=== PATIENT | male | born 1950 | race Caucasian/White ===

== ENCOUNTER 2017-10-05 18:13 | Observation (INO) | payer OTHER ==
[~2017-10-05] VITALS: Ht 180.3 cm; Wt 104.5 kg
[2017-10-05 18:14] VITALS: BP 142/67; PULSE 85; RESP 18; TEMP 98.6; O2SAT 100
[2017-10-05] MEDS ORDERED: SODIUM CHLORIDE 0.9% FLUSH 10 ML FLUSH IVF PRN (18:30)
[2017-10-05] MEDS ORDERED: ASPIRIN 325 MG TAB PO ONE (18:30)
[2017-10-05] MEDS ORDERED: LEVO.05 PO (18:31)
[2017-10-05 18:35] VITALS: BP_SYST 125; BP_SYST 162; BP_DIAS 70; BP_DIAS 72; PULSE 85; RESP 16; O2SAT 98; O2SAT 99
--- NOTE | 2017-10-05 18:50 | PD ---
HPI Chief Complaint: Chest Pain Time Seen by Provider: 18:31 Travel History International Travel<30 days: No Contact w/Intl Traveler<30days: No Traveled to known affect area: No History of Present Illness HPI 67-year-old male with PMH of hypothyroidism, gastric bypass, recently diagnose basal cell carcinoma presents to the ED for evaluation of approximate 1 hour history of 5/10 substernal chest pain. Onset at rest. Patient describes the pain as "a pushing out or stabbing sensation." Accompanied by shortness of breath. Pain lasted approximately 5 minutes before resolving spontaneously. Currently pain-free. Patient denies associated diaphoresis, palpitations, nausea or vomiting. The patient states that he had an episode of small amount of nonbloody, nonbloody emesis today. He states this is not unusual if he eats too much. Patient is a non-smoker, occasional drinker. He endorses familial history of [place] in his mother and father. PFSH Past Medical History Diminished Hearing: No Medical other: Yes Thyroid Disease: Yes Tetanus Vaccination: > 5 Years Influenza Vaccination: Yes Past Surgical History Abdominal Surgery: Yes (gastric by pass) Genitourinary Surgery: Yes (prostate sx ) Social History Alcohol Use: No Tobacco Use: No Substance Use: No Allergies-Medications (Allergen,Severity, Reaction): Coded Allergies: No Known Allergies (Unverified , 10/05/17) Reported Meds & Prescriptions Reported Meds & Active Scripts Active Reported Synthroid (Levothyroxine Sodium) 50 Mcg Tab 50 Mcg PO DAILY Review of Systems Except as stated in HPI: all other systems reviewed are Neg Physical Exam Narrative GENERAL: Well-nourished, well-developed, pleasant male in no acute distress. SKIN: Focused skin assessment warm/dry. HEAD: Normocephalic. EYES: No scleral icterus. No injection or drainage. NECK: Supple, trachea midline. No JVD or lymphadenopathy. CARDIOVASCULAR: Regular rate and rhythm without murmurs, gallops, or rubs. CHEST: Nontender throughout without deformity or crepitus. No retractions. RESPIRATORY: Breath sounds clear and equal bilaterally. No accessory muscle use. GASTROINTESTINAL: Abdomen soft, non-tender, nondistended. Active bowel sounds. MUSCULOSKELETAL: No cyanosis, or edema. BACK: Nontender without obvious deformity. No CVA tenderness. Data Data Last Documented VS Vital Signs Date Time Temp Pulse Resp B/P (MAP) Pulse Ox O2 Delivery O2 Flow Rate FiO2 10/05/17 19:40 68 16 122/76 (91) 97 Room Air 10/05/17 18:14 98.6 Orders Orders Electrocardiogram (10/05/17 18:30) Ckmb (Isoenzyme) Profile (10/05/17 18:30) Complete Blood Count With Diff (10/05/17 18:30) Comprehensive Metabolic Panel (10/05/17 18:30) Magnesium (Mg) (10/05/17 18:30) Prothrombin Time / Inr (Pt) (10/05/17 18:30) Act Partial Throm Time (Ptt) (10/05/17 18:30) Troponin I (10/05/17 18:30) Chest, Single Ap (10/05/17 18:30) Ecg Monitoring (10/05/17 18:30) Bilateral Bp Monitoring (10/05/17 18:30) Iv Access Insert/Monitor (10/05/17 18:30) Oximetry (10/05/17 18:30) Oxygen Administration (10/05/17 18:30) Aspirin (Aspirin) (10/05/17 18:30) Sodium Chloride 0.9% Flush (Ns Flush) (10/05/17 18:30) Abdomen, Upright Only (10/05/17 18:32) Lipase (10/05/17 18:40) Sodium Chlorid 0.9% 500 Ml Inj (Ns 500 M (10/05/17 19:30) Place In Observation (10/05/17 19:45) Activity Bed Rest With Brp (10/05/17 19:45) Vital Signs (Adult) Q4H (10/05/17 19:45) Cardiac Rhythm .As Directed (10/05/17:45) Notify Dr: Other .PRN (10/05/17:45) Notify Dr. Parameters (10/05/17:45) Ckmb (Isoenzyme) Profile (10/05/17 19:45) Ckmb (Isoenzyme) Profile (10/05/17 22:45) Troponin I (10/05/17 19:45) Troponin I (10/05/17 22:45) Electrocardiogram (10/05/17 19:45) Electrocardiogram (10/05/17 22:45) ^ Obtain (10/05/17 19:45) Sodium Chloride 0.9% Flush (Ns Flush) (10/05/17 19:45) Sodium Chloride 0.9% Flush (Ns Flush) (10/05/17 21:00) Computer Graphic Artist / Telemetry CALE.Q8H (10/05/17 19:45) Admit Order (Ed Use Only) (10/05/17 19:45) Labs Laboratory Tests Test 10/05/17 18:40 White Blood Count 6.0 TH/MM3 Red Blood Count 4.15 MIL/MM3 Hemoglobin 12.8 GM/DL Hematocrit 38.0 % Mean Corpuscular Volume 91.6 FL Mean Corpuscular Hemoglobin 30.9 PG Mean Corpuscular Hemoglobin Concent 33.7 % Red Cell Distribution Width 14.0 % Platelet Count 183 TH/MM3 Mean Platelet Volume 9.7 FL Neutrophils (%) (Auto) 60.7 % Lymphocytes (%) (Auto) 30.3 % Monocytes (%) (Auto) 6.7 % Eosinophils (%) (Auto) 1.9 % Basophils (%) (Auto) 0.4 % Neutrophils # (Auto) 3.6 TH/MM3 Lymphocytes # (Auto) 1.8 TH/MM3 Monocytes # (Auto) 0.4 TH/MM3 Eosinophils # (Auto) 0.1 TH/MM3 Basophils # (Auto) 0.0 TH/MM3 CBC Comment DIFF FINAL Differential Comment Prothrombin Time 10.8 SEC Prothromb Time International Ratio 1.1 RATIO Activated Partial Thromboplast Time 28.6 SEC Blood Urea Nitrogen 22 MG/DL Creatinine 1.22 MG/DL Random Glucose 110 MG/DL Total Protein 6.6 GM/DL Albumin 3.2 GM/DL Calcium Level 8.6 MG/DL Magnesium Level 2.2 MG/DL Alkaline Phosphatase 91 U/L Aspartate Amino Transf (AST/SGOT) 19 U/L Alanine Aminotransferase (ALT/SGPT) 31 U/L Total Bilirubin 0.3 MG/DL Sodium Level 141 MEQ/L Potassium Level 4.2 MEQ/L Chloride Level 109 MEQ/L Carbon Dioxide Level 27.7 MEQ/L Anion Gap 4 MEQ/L Estimat Glomerular Filtration Rate 59 ML/MIN Total Creatine Kinase 72 U/L Troponin I LESS THAN 0.02 NG/ML Lipase 209 U/L [facility] Medical Decision Making Medical Screen Exam Complete: Yes Emergency Medical Condition: Yes Differential Diagnosis Chest pain versus unstable angina versus ACS versus GERD versus other Narrative Course 67-year-old male with PMH of hypothyroidism, gastric bypass, recently diagnosed BCC of the nose presents to the ED for evaluation of approximate 1 hour history of 5/10 substernal chest pain. Onset at rest. Described as "a pushing out or stabbing sensation." Accompanied by shortness of breath. Lasting 5 minutes before resolving spontaneously. Currently pain-free. Patient is a non-smoker, occasional drinker. He endorses familial history of IL in his mother and father. The patient is hypertensive on presentation. This resolves in the exam room. No appreciable M/R/G. Chest CTAB. No tenderness to palpation over the precordium. Abdomen soft and nontender. IV was established. Patient was administered half liter normal saline and aspirin by mouth. EKG rate 81, sinus rhythm. Normal intervals. Normal axis. No ST changes. Reviewed by Dr. Dickson. CXR: No acute disease. Cardiac enzymes negative 1. CBC: WBC 6.0. Hemoglobin 12.8. INR 1.1. CMP: BUN 22, creatinine 1.22. Lipase 209. I discussed the results of the workup with the patient and his family. They're agreeable to observation in the chest pain center for serial EKGs and cardiac enzymes. Please see CBC notes for disposition. Diagnosis Primary Impression: Chest pain at rest Oxana Zazueta Oct 05, 2017 18:50
[2017-10-05 19:00] LABS: AUTOMATED NEUTROPHIL # 3.6 TH/MM3 (1.8-7.7); BASOPHIL % 0.4 % (0.0-2.0); EOSINOPHIL # 0.1 TH/MM3 (0-0.4); EOSINOPHIL % 1.9 % (0.0-4.0); HEMOGLOBIN 12.8 GM/DL (13.0-17.0); LYMPH % 30.3 % (9.0-44.0); LYMPHOCYTE # 1.8 TH/MM3 (1.0-4.8); MEAN CELL VOLUME 91.6 FL (80.0-100.0); MEAN CORPUSCULAR HEMOGLOBIN 30.9 PG (27.0-34.0); MEAN CORPUSCULAR HGB CONC 33.7 % (32.0-36.0); MEAN PLATELET VOLUME 9.7 FL (7.0-11.0); MONO % 6.7 % (0.0-8.0); MONOCYTE # 0.4 TH/MM3 (0-0.9); NEUT % 60.7 % (16.0-70.0); PLATELET COUNT 183 TH/MM3 (150-450); RED BLOOD COUNT 4.15 MIL/MM3 (4.50-5.90)
[2017-10-05 19:10] LABS: INTERNATIONAL NORMALIZED RATIO 1.1 RATIO; PROTHROMBIN TIME - PATIENT 10.8 SEC (9.8-11.6)
[2017-10-05 19:15] LABS: ALBUMIN 3.2 GM/DL (3.4-5.0); AST (GOT) 19 U/L (15-37); BICARBONATE 27.7 MEQ/L (21.0-32.0); BLOOD UREA NITROGEN 22 MG/DL (7-18); CALCIUM 8.6 MG/DL (8.5-10.1); CHLORIDE 109 MEQ/L (98-107); CREATININE 1.22 MG/DL (0.60-1.30); GLOMERULAR FILTRATION RATE 59 ML/MIN (>89); GLUCOSE,RANDOM 110 MG/DL (74-106); MAGNESIUM 2.2 MG/DL (1.5-2.5); SODIUM (NA) 141 MEQ/L (136-145)
[2017-10-05 19:16] LABS: ALT (GPT) 31 U/L (12-78)
--- NOTE | 2017-10-05 19:16 | RADRPT ---
EXAM DATE/TIME: 10/05/2017 18:51 [facility] COMPARISON: No previous studies available for comparison. INDICATIONS : Upper chest pain. Vomiting that started today. MEDICAL HISTORY : None. SURGICAL HISTORY : Gastric bypass. ENCOUNTER: Initial ACUITY: 1 day PAIN SCORE: 10/10 LOCATION: abdomen. FINDINGS: A single erect view of the abdomen demonstrates the lower lungs to be clear. No evidence of free int raperitoneal gas. The visualized bowel loops are unremarkable. CONCLUSION: No acute disease. Nigel Eason MD on October 05, 2017 at 19:14 Board Certified Radiologist. This report was verified electronically.
--- NOTE | 2017-10-05 19:17 | RADRPT ---
EXAM DATE/TIME: 10/05/2017 18:50 [facility] COMPARISON: No previous studies available for comparison. INDICATIONS : Chest and upper abdomen pain. Vomiting that started today. MEDICAL HISTORY : None. SURGICAL HISTORY : Gastric bypass. ENCOUNTER: Initial ACUITY: 1 day PAIN SCORE: 10/10 LOCATION: Bilateral chest FINDINGS: A single view of the chest demonstrates the lungs to be symmetrically aerated without evidence of mas s, infiltrate or effusion. The cardiomediastinal contours are unremarkable. Osseous structures are intact. CONCLUSION: No acute disease. Nigel Eason MD on October 05, 2017 at 19:14 Board Certified Radiologist. This report was verified electronically.
[2017-10-05 19:20] LABS: ALKALINE PHOSPHATASE 91 U/L (45-117); TOTAL BILIRUBIN ADULT 0.3 MG/DL (0.2-1.0); TOTAL PROTEIN 6.6 GM/DL (6.4-8.2); TROPONIN I LESS THAN 0.02 NG/ML (0.02-0.05)
[2017-10-05] MEDS ORDERED: SODIUM CHLORID 0.9% 500 ML INJ 500 ML IV ONE (19:30)
[2017-10-05 19:40] VITALS: BP 122/76; PULSE 68; RESP 16; O2SAT 97
[2017-10-05] MEDS ORDERED: SODIUM CHLORIDE 0.9% FLUSH 10 ML FLUSH IV FLUSH PRN (19:45)
[2017-10-05] MEDS: SODIUM CHLORIDE 0.9% FLUSH 10 ML FLUSH IV FLUSH SCH (19:51)
[2017-10-05 21:53] VITALS: BP 115/65; PULSE 66; RESP 18; TEMP 97.8; O2SAT 100
[2017-10-05 23:06] LABS: TROPONIN I LESS THAN 0.02 NG/ML (0.02-0.05)
[2017-10-06] VITALS (7 sets, daily range): BP systolic 102–131; BP diastolic 62–77; PULSE 63–85; RESP 18; TEMP 97.8–98.7; O2SAT 96–100
[2017-10-06 02:53] LABS: TROPONIN I LESS THAN 0.02 NG/ML (0.02-0.05)
[2017-10-06] MEDS ORDERED: LEVOTHYROXINE SODIUM 50 MCG TAB PO SCH (09:00)
[2017-10-06] MEDS: SODIUM CHLORIDE 0.9% FLUSH 10 ML FLUSH IV FLUSH SCH (10:24)
--- NOTE | 2017-10-06 11:16 | HHI.HP ---
[facility] Primary Care Physician Lisbeth Coto M.D. Chief Complaint Chest pain History of Present Illness This is a 67-year-old male that presents to ED with history of hyperlipidemia and hypothyroidism with complaint of chest discomfort. Patient speaks Egyptian and he refuses to use the [employer] for translation. He is requesting that his son translate. Apparently the patient began having a central chest discomfort around 5:00 yesterday while getting a coffee. [place] like it was a discomfort deep in his chest that was expanding outward. There was a 6 out of 10. And then in the head to needle stick sensations extend without. Symptoms lasted about 5 minutes. Denies shortness of breath, nausea, or diaphoresis. He then stated that he had a couple episodes of emesis yesterday. Apparently is not uncommon for him. States that he had a gastric bypass and has emesis when he eats too much. Currently denies any chest discomfort. Cannot recall prior cardiac testing. Denies recent illness. Denies fevers or chills. States he has never been prescribed medication for hyperlipidemia, however his PCP recently kevin labs and he was told that he is lipid panel is abnormal that he likely will be started on medication. Review of Systems General: Patient denies fevers, chills recent, and recent travel HEENT: Patient denies headache, sore throat, difficulty swallowing. Cardiovascular: Has the chest discomfort as mentioned above. Denies sensation of heart beating rapidly or irregularly. No syncope. Denies diaphoresis. Respiratory: Denies shortness of breath or inspirational chest discomfort. Denies coughing wheezing or hemoptysis. GI: Patient denies nausea, vomiting, diarrhea, abdominal pain, bloody stools. Musculoskeletal: Patient denies joint pain or edema. Denies calf pain or edema. Neurovascular: Patient denies numbness, tingling, weakness in extremities. Denies headache. Endocrine: Denies polyuria and polydipsia. Hematologic: Denies easy bruising. Skin: Denies rash or itching. Past Family Social History Allergies: Coded Allergies: No Known Allergies (Unverified , 10/05/17) Past Medical History Hypothyroidism, hyperlipidemia. Denies hypertension, diabetes, and CAD. Past Surgical History Gastric bypass. Prostate surgery. Reported Medications Reported Meds & Active Scripts Active Reported Synthroid (Levothyroxine Sodium) 50 Mcg Tab 50 Mcg PO DAILY Active Ordered Medications Current Medications Medications (Trade) Dose Ordered Sig/Alistair Route Start Time Stop Time Status Last Admin (NS Flush) 2 ml UNSCH PRN IV FLUSH 10/05/17 19:45 (NS Flush) 2 ml BID IV FLUSH 10/05/17 21:00 10/06/17 10:24 (Synthroid) 50 mcg DAILY@0600 PO 10/06/17 09:00 10/06/17 10:23 Family History States that his mother at age 83 of myocardial infarction and his father at age 64 of a myocardial infarction. Physical Exam Vital Signs Vital Signs Date Time Temp Pulse Resp B/P (MAP) Pulse Ox O2 Delivery O2 Flow Rate FiO2 10/06/17 08:00 68 10/06/17 07:14 98.7 68 18 128/70 (89) 97 10/06/17 03:39 85 10/06/17 03:34 98.2 67 18 102/63 (76) 96 10/06/17 00:47 97.8 63 18 108/62 (77) 98 10/06/17 00:03 67 10/05/17 21:53 97.8 66 18 115/65 (82) 100 10/05/17 19:40 68 16 122/76 (91) 97 Room Air 10/05/17 18:37 98 Room Air 10/05/17 18:37 80 16 98 Room Air 10/05/17 18:35 85 16 162/72 (102) 99 Room Air 125/70 (88) 10/05/17 18:35 16 98 Room Air 10/05/17 18:14 98.6 85 18 142/67 (92) 100 Room Air Physical Exam GENERAL: This is a well-nourished, well-developed patient, in no apparent distress. Patient speaks in clear complete sentences, he speaks Egyptian primarily. His son is translating, patient does not want to use [employer] for translation. Patient is pleasant. HEENT: Head is atraumatic and normocephalic. Neck is supple without lymphadenopathy and trachea is midline. No JVD or carotid bruits. CARDIOVASCULAR: Regular rate and rhythm without murmurs, gallops, or rubs. RESPIRATORY: Clear to auscultation. Breath sounds equal bilaterally. No wheezes , rales, or rhonchi. Chest wall is nontender. No use of accessory muscles. GASTROINTESTINAL: Abdomen is nontender, nondistended. Abdomen soft. No obvious pulsatile mass or bruit. No CVA tenderness. Strong femoral pulses bilaterally. Normal bowel sounds in all quadrants. MUSCULOSKELETAL: Patient is moving upper and lower extremities freely. No calf tenderness or edema, no Homans sign. Strong pulses in upper and lower extremities. NEUROLOGICAL: Patient is alert and oriented. Cranial nerves 2-12 are grossly intact. No focal deficits and speech is clear. SKIN: No rash and turgor is normal. Laboratory Laboratory Tests Test 10/05/17 18:40 10/05/17 22:30 10/06/17 02:17 White Blood Count 6.0 Red Blood Count 4.15 Hemoglobin 12.8 Hematocrit 38.0 Mean Corpuscular Volume 91.6 Mean Corpuscular Hemoglobin 30.9 Mean Corpuscular Hemoglobin Concent 33.7 Red Cell Distribution Width 14.0 Platelet Count 183 Mean Platelet Volume 9.7 Neutrophils (%) (Auto) 60.7 Lymphocytes (%) (Auto) 30.3 Monocytes (%) (Auto) 6.7 Eosinophils (%) (Auto) 1.9 Basophils (%) (Auto) 0.4 Neutrophils # (Auto) 3.6 Lymphocytes # (Auto) 1.8 Monocytes # (Auto) 0.4 Eosinophils # (Auto) 0.1 Basophils # (Auto) 0.0 CBC Comment DIFF FINAL Differential Comment Prothrombin Time 10.8 Prothromb Time International Ratio 1.1 Activated Partial Thromboplast Time 28.6 Blood Urea Nitrogen 22 Creatinine 1.22 Random Glucose 110 Total Protein 6.6 Albumin 3.2 Calcium Level 8.6 Magnesium Level 2.2 Alkaline Phosphatase 91 Aspartate Amino Transf (AST/SGOT) 19 Alanine Aminotransferase (ALT/SGPT) 31 Total Bilirubin 0.3 Sodium Level 141 Potassium Level 4.2 Chloride Level 109 Carbon Dioxide Level 27.7 Anion Gap 4 Estimat Glomerular Filtration Rate 59 Total Creatine Kinase 72 68 61 Troponin I LESS THAN 0.02 LESS THAN 0.02 LESS THAN 0.02 Lipase 209 Result Diagram: 10/05/17 1840 10/05/17 1840 Imaging Last 48 hours Impressions Abdomen X-Ray 10/05/17 1832 Signed Impressions: Service Date/Time: Thursday, October 05, 2017 18:51 - CONCLUSION: No acute disease. Nigel Eason MD Chest X-Ray 10/05/17 1830 Signed Impressions: Service Date/Time: Thursday, October 05, 2017 18:50 - CONCLUSION: No acute disease. Nigel Eason MD Course EKGs are sinus rhythm without significant ST segment depressions or elevations. Caprini VTE Risk Assessment Caprini VTE Risk Assessment: Mod/High Risk (score >= 2) Caprini Risk Assessment Model Point Value = 1 Point Value = 2 Point Value = 3 Point Value = 5 Age 41-60 Minor surgery BMI > 25 kg/m2 Swollen legs Varicose veins or History of unexplained or recurrent spontaneous Oral contraceptives or hormone replacement Sepsis (< 1 month) Serious lung disease, including pneumonia (< 1 month) Abnormal pulmonary function Acute myocardial infarction Congestive heart failure (< 1 month) History of inflammatory bowel disease Medical patient at bed rest Age 61-74 Arthroscopic surgery Major open surgery (> 45 min) Laparoscopic surgery (> 45 min) Malignancy Confined to bed (> 72 hours) Immobilizing plaster cast Central venous access Age >= 75 History of VTE Family history of VTE Factor V Leiden Prothrombin [id number] Lupus anticoagulant Anticardiolipin antibodies Elevated serum homocysteine Heparin-induced thrombocytopenia Other congenital or acquired thrombophilia Stroke (< 1 month) Elective arthroplasty Hip, pelvis, or leg fracture Acute spinal cord injury (< 1 month) Prophylaxis Regimen Total Risk Factor Score Risk Level Prophylaxis Regimen 0-1 Low Early ambulation 2 Moderate Order ONE of the following: *Sequential Compression Device (SCD) *Heparin 5000 units SQ BID 3-4 Higher Order ONE of the following medications: *Heparin 5000 units SQ TID *Enoxaparin/Lovenox 40 mg SQ daily (WT < 150 kg, CrCl > 30 mL/min) *Enoxaparin/Lovenox 30 mg SQ daily (WT < 150 kg, CrCl > 10-29 mL/min) *Enoxaparin/Lovenox 30 mg SQ BID (WT < 150 kg, CrCl > 30 mL/min) AND/OR *Sequential Compression Device (SCD) 5 or more Highest Order ONE of the following medications: *Heparin 5000 units SQ TID (Preferred with Epidurals) *Enoxaparin/Lovenox 40 mg SQ daily (WT < 150 kg, CrCl > 30 mL/min) *Enoxaparin/Lovenox 30 mg SQ daily (WT < 150 kg, CrCl > 10-29 mL/min) *Enoxaparin/Lovenox 30 mg SQ BID (WT < 150 kg, CrCl > 30 mL/min) AND *Sequential Compression Device (SCD) Assessment and Plan Assessment and Plan * Chest pain: Patient has had serial cardiac enzymes and EKGs for ruling out purposes. He was seen by Dr. Jesus Smith of cardiology in the chest pain center and will undergo a Lexiscan. He will be discharged home if the stress test was nonischemic with instructions to follow-up with PCP. Return to ED for interval issues. * Hyperlipidemia: Patient has follow-up arranged with PCP. Labs are pending and he might be starting on medication for hyperlipidemia. * Hypothyroidism: Continue current medication. Patient is stable at this time. He is agreeable to this plan. Miles Rowe Oct 06, 2017 11:16
[2017-10-06] MEDS ORDERED: REGADENOSON INJ 0.4 MG/5 ML SYR ONE (11:37)
[2017-10-06] MEDS ORDERED: ACETAMINOPHEN 325 MG TAB PO ONE (13:00)
--- NOTE | 2017-10-06 14:28 | EKG ---
Date Performed: 10/06/2017 Time Performed: 00:53:33 PTAGE: 67 years EKG: Sinus rhythm NORMAL ECG PREVIOUS TRACING : 10/05/2017 21.59 Since previous tracing, no significant change noted DOCTOR: Jesus Smith Interpretating Date/Time 10/06/2017 14:27:02
--- NOTE | 2017-10-06 14:29 | EKG ---
Date Performed: 10/05/2017 Time Performed: 21:59:23 PTAGE: 67 years EKG: Sinus rhythm NORMAL ECG PREVIOUS TRACING : 10/05/2017 18.27 Since previous tracing, no significant change noted DOCTOR: Jesus Smith Interpretating Date/Time 10/06/2017 14:27:40
--- NOTE | 2017-10-06 14:30 | EKG ---
Date Performed: 10/05/2017 Time Performed: 18:27:30 PTAGE: 67 years EKG: Sinus rhythm NORMAL ECG INTERPRETATION BASED ON A DEFAULT AGE OF 40 YEARS NO PREVIOUS TRACING DOCTOR: Jesus Smith Interpretating Date/Time 10/06/2017 14:28:09
--- NOTE | 2017-10-06 14:31 | TR ---
Date Performed: 10/06/2017 Time Performed: 11:37:52 DOCTOR: Jesus Smith DRUG LIST: CLINICAL HISTORY: ANGINA REASON FOR TEST: Angina REASON FOR ENDING: OBSERVATION: CONCLUSION: Lexiscan stress test was performed under standard four minute protocol. Radionuclid e was injected one minute prior to ending the test. No electrocardiographic abormalities were present to suggest ischemia. Nuclear imaging and interpretation are pending. COMMENTS:
--- NOTE | 2017-10-06 14:54 | RADRPT ---
EXAM DATE/TIME: 10/06/2017 11:16 [facility] COMPARISON: No previous studies available for comparison. INDICATIONS : Substernal chest pain with dyspnea. Angina. DOSE: 26.1 mCi Tc99m Myoview at stress. 8.1 mCi Tc99m Myoview at rest. 0.4 mg Lexiscan STRESS SYMPTOMS: Short of breath. EJECTION FRACTION: 64% MEDICAL HISTORY : Carcinoma, basal cell. SURGICAL HISTORY : Prostatectomy. Gastric bypass. ENCOUNTER: Initial ACUITY: 1 day PAIN SCALE: 5/10 LOCATION: Substernal chest TECHNIQUE: The patient underwent pharmacologic stress with infusion of prescribed dose. Continuous ECG tracing was monitored during stress. Gated SPECT imaging was performed after stress and conventional SPECT i maging was performed at rest. The examination was performed on a SPECT/CT scanner, both attenuation and non-corrected datasets were reviewed. FINDINGS: DISTRIBUTION: The maximum perfused segment at stress is in the anteroseptal wall. PERFUSION STUDY: There is a small size mild severity fixed defect involving the apical segment of the inferior wall an d extending to the apex. Wall motion is intact. GATED STUDY: There is intact wall motion and thickening without hypokinetic or dyskinetic segments. CONCLUSION: 1. Fixed defect involving the apical segment of the inferior wall and apex. No evidence of ischemia RISK CATEGORY: Low (<1% Annual Mortality Rate) Jesus De La Cruz MD on October 06, 2017 at 14:50 Board Certified Radiologist. This report was verified electronically.
--- NOTE | 2017-10-06 14:59 | HHI.DCPOC ---
Discharge Care Plan Diagnosis: (1) Chest pain (2) Hyperlipidemia Goals to Promote Your Health * To prevent worsening of your condition and complications * To maintain your health at the optimal level Directions to Meet Your Goals Take your medications as prescribed Follow your dietary instruction Follow activity as directed Keep your appointments as scheduled Take your immunizations and boosters as scheduled If your symptoms worsen call your PCP, if no PCP go to Urgent Care Center or Emergency Room Smoking is Dangerous to Your Health. Avoid second hand smoke Call the 24-hour hour crisis hotline for domestic abuse at Miles Rowe Oct 06, 2017 14:59
== END 2017-10-06 16:05 | disposition home or self-care (01) ==
LOC: NEPC 18:13 → NEDA 19:47 → NEPHCDU 21:00
PROVIDERS: ADMIT Internal Medicine Interventional Cardiology; ATTEND Internal Medicine Interventional Cardiology
DX: R07.89 Other chest pain (principal); E78.5 Hyperlipidemia, unspecified; E03.9 Hypothyroidism, unspecified; R11.10 Vomiting, unspecified; I20.9 Angina pectoris, unspecified; R06.00 Dyspnea, unspecified; Z85.828 Personal history of other malignant neoplasm of skin; Z98.84 Bariatric surgery status
CPT/HCPCS: 71045; 74018; 78452; 80053; 82550; 83690; 83735; 84484; 85025; 85610; 85730; 93005; 93017; 96360; 96361; 99285; A9502; G0378; J2785; J7040